=== PATIENT | female | born 1980 | race Caucasian/White ===

== ENCOUNTER 2024-04-13 14:36 | Outpatient (CLI) | payer BC, MEDICAID | END 2024-04-13 23:59 | disposition home or self-care (01) | LOC: 64 CT 14:36 | PROVIDERS: ATTEND Nurse Practitioner Family | DX: Z13.6 Encounter for screening for cardiovascular disorders (principal); E78.2 Mixed hyperlipidemia | CPT/HCPCS: 75571 ==